=== PATIENT | female | born 2000 | race African-American/Black ===

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

== ENCOUNTER 2018-05-10 11:22 | Emergency (ER) | payer MEDICAID ==
[~2018-05-10] VITALS: Ht 162.6 cm; Wt 48.0 kg
[2018-05-10] MEDS ORDERED: IBUPROFEN 600MG TABLET PO ONE (14:15)
[2018-05-10 15:26] VITALS: BP 128/95
== END 2018-05-10 15:27 | disposition home or self-care (01) ==
LOC: ER 11:22
DX: M25.521 Pain in right elbow (principal); R07.81 Pleurodynia
CPT/HCPCS: 71100; 73080; 81025; 99283